=== PATIENT | male | born 1990 | race Caucasian/White ===

== ENCOUNTER 2016-09-10 15:02 | Observation (INO) | payer OTHER ==
--- NOTE | 2016-09-10 15:04 | PDOC ---
History of Present Illness - General History Source: Patient Exam Limitations: No Limitations - History of Present Illness Initial Comments: 09/10/16 15:11 The patient is a 25 year old male, with a significant past medical history of GERD who presents to the emergency department with nausea and vomiting about an hour ago.The patient reports having multiple episodes of vomiting and nausea. He also has chief complaints of abdominal pain, which he describes as a pressures sensation in his upper quadrant. He denies eating any new strange/ food. He reports just prior to vomiting, eating two donuts. He denies any recent fevers, chills, headache. He denies any recent diarrhea or constipation. He denies any recent chest pain or shortness of breath. He denies any recent dysuria, frequency, urgency or hematuria. Allergies: NKDA Past surgical history: denies Social History: Nonsmoker. Occasional EtOH use and denies drug use. <Martínez Carter - Last Filed: 09/10/16 17:19> - General History Source: Patient, Old Records Exam Limitations: No Limitations <Ani Shea - Last Filed: 09/10/16 19:13> - General Chief Complaint: Nausea/Vomiting Stated Complaint: VOMITING Time Seen by Provider: 09/10/16 15:04 Past History <Martínez Carter - Last Filed: 09/10/16 17:19> - Past Medical History GI Disorders: Yes (ESOPHAGEAL STRICTURE) - Psycho/Social/Smoking Cessation Hx Anxiety: No Suicidal Ideation: No Smoking History: Former smoker Have you smoked in the past 12 months: No Number of Cigarettes Smoked Daily: 0 'Breaking Loose' booklet given: 06/16/15 Hx Alcohol Use: Yes (OCCAS.) Drug/Substance Use Hx: No Substance Use Type: None <Ani Shea - Last Filed: 09/10/16 19:13> - Past Medical History Allergies/Adverse Reactions: Allergies Allergy/AdvReac Type Severity Reaction Status Date / Time mushroom Allergy Unknown Verified 09/10/16 15:06 shrimp Allergy Unknown Verified 09/10/16 15:06 Home Medications: Ambulatory Orders Esomeprazole Mag Trihydrate [Nexium] 20 mg PO DAILY 08/20/15 Review of Systems - Review of Systems Able to Perform ROS?: Yes Comments:: 09/10/16 15:11 CONSTITUTIONAL: Absent: fever, no chills, no fatigue EYES: Absent: visual changes ENT: Absent: ear pain, no sore throat CARDIOVASCULAR: Absent: chest pain, no palpitations RESPIRATORY: Absent: cough, no SOB GI: +Nausea, and vomiting, abdominal pain,. Absent: no constipation, no diarrhea GENITOURINARY: Absent: dysuria, no frequency, no hematuria MUSKULOSKELETAL: Absent: back pain, no arthralgia, no myalgia SKIN: Absent: rash NEURO: Absent: headache <Martínez Carter - Last Filed: 09/10/16 17:19> *Physical Exam - Physical Exam Comments: 09/10/16 15:11 GENERAL: Well developed, well nourished. Awake and alert. No acute distress. HEENT: Normocephalic, atraumatic. PERRLA, EOMI. No conjunctival pallor. Sclera are non- icteric. Moist mucous membranes. Oropharynx is clear. NECK: Supple. Full ROM. No JVD. Carotid pulses 2+ and symmetric, without bruits. No thyromegaly. No lymphadenopathy. CARDIOVASCULAR: Regular rate and rhythm. No murmurs, rubs, or gallops. Distal pulses are 2+ and symmetric. PULMONARY: +tachycardia. No evidence of respiratory distress. Lungs clear to auscultation bilaterally. No wheezing, rales or rhonchi. ABDOMINAL: Soft. Non-tender. Non-distended. No rebound or guarding. No organomegaly. Normoactive bowel sounds. MUSCULOSKELETAL Normal range of motion at all joints. No bony deformities or tenderness. No CVA tenderness. EXTREMITIES: No cyanosis. No clubbing. No edema. No calf tenderness. SKIN: Warm and dry. Normal capillary refill. No rashes. No jaundice. NEUROLOGICAL: Alert, awake, appropriate. Cranial nerves 2-12 intact. No deficits to light touch and temperature in face, upper extremities and lower extremities. No motor deficits in the in face, upper extremities and lower extremities. Normoreflexic in the upper and lower extremities. Normal speech. Toes are down- going bilaterally. Gait is normal without ataxia. PSYCHIATRIC: Cooperative. Good eye contact. Appropriate mood and affect. <Martínez Carter - Last Filed: 09/10/16 17:19> ED Treatment Course - LABORATORY CBC & Chemistry Diagram: 09/10/16 15:13 09/10/16 15:13 - RADIOLOGY Radiograph Interpretation: 09/10/16 17:19 CHEST X-RAY impressions reported by : No significant interval change or acute lung disease is present. ABDOMEN CT W/O CONTR impressions reported by : There is no CT evidence of appendicitis, diverticulitis or abscess formation. Mildly prominent mesenteric lymph nodes are seen within the abdomen bilaterally which may be on a chronic or acute basis. <Martínez Carter - Last Filed: 09/10/16 17:19> - LABORATORY CBC & Chemistry Diagram: 09/10/16 18:40 09/10/16 18:40 <Ani Shea - Last Filed: 09/10/16 19:13> Medical Decision Making - Medical Decision Making 09/10/16 15:12 25-year-old male with history of esophagitis and esophageal stricture who presents the emergency department with epigastric pain and vomiting this afternoon. Differential diagnosis includes but is not limited to: Food impaction , ACS, pancreatitis, peptic ulcer disease, gastritis, dehydration, electrolyte abnormality, toxic/metabolic derangement. Plan: 1. EKG 2. Labs 3. IV fluids for hydration 4. Urine analysis 6. Antiemetics 7. Pepcid 8. Observe and reevaluate <Ani Shea - Last Filed: 09/10/16 19:13> *DC/Admit/Observation/Transfer - Attestations Scribe Attestion: 09/10/16 15:11 Documentation prepared by Martínez Carter, acting as medical office supervisor for Ani Shea MD. <Martínez Carter - Last Filed: 09/10/16 17:19> - Discharge Dispostion Admit: Yes - Attestations Physician Attestion: 09/10/16 15:14 I, Dr. Ani Shea, attest that the scribes documentation that appears above has been prepared under my direction and personally reviewed by me in its entirety. I confirmed that the note above accurately reflects all work, treatment, procedures, and medical decision-making performed by me. <Ani Shea - Last Filed: 09/10/16 19:13> Diagnosis at time of Disposition: Nausea and vomiting, Epigastric pain - Discharge Dispostion Condition at time of disposition: Stable
[2016-09-10] MEDS ORDERED: SODIUM CHLORIDE 1,000 ML IV STA ×3 (15:11→17:25)
[2016-09-10] MEDS ORDERED: ONDANSETRON 4 MG/2 ML VIAL IVPUSH ONE (15:11)
[2016-09-10] MEDS ORDERED: ONDANSETRON 4 MG/2 ML VIAL ONE ×2 (15:18→15:19)
[2016-09-10 15:32] LABS: BASOPHIL 1.7 % (0-2.0); EOSINOPHIL 1.5 % (0-4.5); MCH 27.6 pg (25.7-33.7); MCHC 33.9 g/dl (32.0-35.9); MEAN CELL VOLUME 81.5 fl (80-96); MEAN PLT VOLUME 9.5 fl (7.5-11.1); NEUTROPHILS 69.6 % (42.8-82.8); PLATELET COUNT 368 K/MM3 (134-434); WHITE BLOOD COUNT 18.2 K/mm3 (4.0-10.0)
[2016-09-10 15:42] LABS: ALBUMIN 4.7 g/dl (3.5-5.0); ALK PHOS 77 U/L (32-92); ANION GAP 11 (8-16); BILIRUBIN,TOTAL 0.6 mg/dl (0.2-1.0); CALCIUM 9.7 mg/dl (8.4-10.2); CO2 25 mmol/L (22-28); CPK(DFH) 103 IU/L (38-174); CREATININE 0.9 mg/dl (0.6-1.3); GLUCOSE,RANDOM 195 mg/dl (74-106); MAGNESIUM 1.9 mg/dL (1.8-2.4); PHOSPHOROUS 2.9 mg/dl (2.5-4.6); SGOT/AST 20 U/L (10-42); SGPT/ALT 27 U/L (10-40); TOT PROT 8.2 g/dl (6.4-8.3)
[2016-09-10 15:52] LABS: TROPONIN I (DFP) < 0.03 ng/ml (0.03-0.50)
[2016-09-10 16:43] LABS: URINE BILIRUBIN 1+ (NEGATIVE); URINE BLOOD Negative (NEGATIVE); URINE GLUCOSE (UA) Negative (NEGATIVE); URINE KETONE 1+ (NEGATIVE); URINE LEUK ESTERASE Negative (NEGATIVE); URINE NITRITE Negative (NEGATIVE); URINE UROBILINOGEN 1.0 E.U/dl (0.2-1.0)
[2016-09-10 16:47] LABS: URINE APPEARANCE CLOUDY; URINE COLOR YELLOW; URINE PROTEIN 1+ (NEGATIVE)
[2016-09-10 17:06] LABS: CALCIUM OXALATE CRYSTALS FEW /hpf (NONE SEEN); URINE BACTERIA FEW /hpf (NEGATIVE); URINE RBC 0-2 /hpf (0-3)
[2016-09-10] MEDS ORDERED: KETOROLAC TROMETHAMINE 30 MG/1 ML VIAL IVPUSH ONE (17:23)
[2016-09-10] MEDS ORDERED: KETOROLAC TROMETHAMINE 30 MG/1 ML VIAL ONE (17:24)
[2016-09-10 17:54] LABS: URINE MARIJUANA THC POSITIVE ng/ml (CUTOFF=50)
[2016-09-10 18:58] LABS: MCH 27.3 pg (25.7-33.7); MCHC 33.7 g/dl (32.0-35.9); MEAN CELL VOLUME 81.1 fl (80-96); MEAN PLT VOLUME 9.1 fl (7.5-11.1); PLATELET COUNT 237 K/MM3 (134-434); RDW 11.8 % (11.9-15.9); WHITE BLOOD COUNT 20.2 K/mm3 (4.0-10.0)
[2016-09-10 19:07] LABS: CALCIUM 8.2 mg/dl (8.4-10.2); CREATININE 0.9 mg/dl (0.6-1.3)
[2016-09-10] MEDS ORDERED: ONDANSETRON 4 MG/2 ML VIAL IVPB PRN (20:05)
[2016-09-10] MEDS ORDERED: SODIUM CHLORIDE 1,000 ML IV SCH (20:15)
[2016-09-10 21:50] VITALS: BMI 28.8
[2016-09-10] MEDS: INSULIN SLIDING SCALE (NOVOLOG) 1 VIAL SQ SCH (22:00)
--- NOTE | 2016-09-10 23:59 | HP ---
CHIEF COMPLAINT: abdominal pain PCP: none HISTORY OF PRESENT ILLNESS: This is a 25 year old male with a past medical history of GERD and esophageal food bolus impaction who presented to the ED with abdominal pain. Pt states the pain was in his LUQ associated with vomiting. Pt states he vomited at least 12 times. States he is now feeling much better after receiving medications and IVF in the ED. No further pain. ER course was notable for: (1) given toradol 30 and ondansetron 4mg IVP (2) received 3L NS in ED (3) WBC 18.2, repeat 20.2 Recent Travel: pt denies PAST MEDICAL HISTORY: GERD esophageal food bolus impaction multiple episodes s/p EGD x 2 PAST SURGICAL HISTORY: pt denies Social History: Smoking: occ, approx once weekly Alcohol: occ, approx once weekly Drugs: occ, less than once weekly Family History: mother alive and well, no medical problems father alive and well, no medical problems 2 younger brothers alive and well, no medical problems Allergies mushroom Allergy (Unknown, Verified 09/10/16 15:06) shrimp Allergy (Unknown, Verified 09/10/16 15:06) HOME MEDICATIONS: 3 Medication Instructions Recorded Esomeprazole Mag Trihydrate 20 mg PO DAILY 08/20/15 [Nexium] REVIEW OF SYSTEMS CONSTITUTIONAL: Absent: fever, chills, diaphoresis, generalized weakness, malaise, loss of appetite, weight change HEENT: Absent: rhinorrhea, nasal congestion, throat pain, throat swelling, difficulty swallowing, mouth swelling, ear pain, eye pain, visual changes CARDIOVASCULAR: Absent: chest pain, syncope, palpitations, irregular heart rate, lightheadedness , peripheral edema RESPIRATORY: Absent: cough, shortness of breath, dyspnea with exertion, orthopnea, wheezing, stridor, hemoptysis GASTROINTESTINAL: Present: abdominal pain, nausea, vomiting Absent: abdominal distension, diarrhea, constipation, melena, hematochezia GENITOURINARY: Absent: dysuria, frequency, urgency, hesitancy, hematuria, flank pain, genital pain MUSCULOSKELETAL: Absent: myalgia, arthralgia, joint swelling, back pain, neck pain SKIN: Absent: rash, itching, pallor HEMATOLOGIC/IMMUNOLOGIC: Absent: easy bleeding, easy bruising, lymphadenopathy, frequent infections ENDOCRINE: Absent: unexplained weight gain, unexplained weight loss, heat intolerance, cold intolerance NEUROLOGIC: Absent: headache, focal weakness or paresthesias, dizziness, unsteady gait, seizure, mental status changes, bladder or bowel incontinence PSYCHIATRIC: Absent: anxiety, depression, suicidal or homicidal ideation, hallucinations. PHYSICAL EXAMINATION Vital Signs - 24 hr 3 09/10/16 09/10/16 09/10/16 15:03 15:21 15:22 Temperature 98.2 F Pulse Rate 101 H Pulse Rate [ 103 H Right] Respiratory 20 20 Rate Blood Pressure 149/76 120/80 Blood Pressure 120/80 [Left Arm] O2 Sat by Pulse 99 99 Oximetry (%) 3 09/10/16 09/10/16 09/10/16 16:17 20:16 21:26 Temperature 97.6 F 97.9 F 98.0 F Pulse Rate 77 Pulse Rate [ 75 Right] Respiratory 19 18 Rate Blood Pressure 112/65 Blood Pressure 104/71 [Left Arm] O2 Sat by Pulse 99 96 Oximetry (%) GENERAL: Awake, alert, and fully oriented, in no acute distress. HEAD: Normal with no signs of trauma. EYES: Pupils equal, round and reactive to light, extraocular movements intact, sclera anicteric, conjunctiva clear. No lid lag. EARS, NOSE, THROAT: Ears normal, nares patent, oropharynx clear without exudates. Moist mucous membranes. NECK: Normal range of motion, supple without lymphadenopathy, JVD, or masses. LUNGS: Breath sounds equal, clear to auscultation bilaterally. No wheezes, and no crackles. No accessory muscle use. HEART: Regular rate and rhythm, normal S1 and S2 without murmur, rub or gallop. ABDOMEN: Soft, nontender, not distended, normoactive bowel sounds, no guarding, no rebound, no masses. No hepatomegaly or splenomegaly. MUSCULOSKELETAL: Normal range of motion at all joints. No bony deformities or tenderness. No CVA tenderness. UPPER EXTREMITIES: 2+ pulses, warm, well-perfused. No cyanosis. No clubbing. Cap refill <2 seconds. No peripheral edema. LOWER EXTREMITIES: 2+ pulses, warm, well-perfused. No calf tenderness. No peripheral edema. NEUROLOGICAL: Cranial nerves II-XII intact. Normal speech. Normal gait. PSYCHIATRIC: Cooperative. Good eye contact. Appropriate mood and affect. SKIN: Warm, dry, normal turgor, no rashes or lesions noted. Laboratory Results - last 24 hr 3 09/10/16 09/10/16 09/10/16 15:13 15:13 15:13 WBC 18.2 H D RBC 5.69 H Hgb 15.7 Hct 46.4 MCV 81.5 MCHC 33.9 RDW 12.0 Plt Count 368 D MPV 9.5 Neutrophils % 69.6 Lymphocytes % 18.6 Monocytes % 8.6 Eosinophils % 1.5 Basophils % 1.7 Sodium 136 Potassium 3.9 Chloride 100 Carbon Dioxide 25 Anion Gap 11 BUN 14 Creatinine 0.9 Creat Clearance w eGFR > 60 POC Glucometer Random Glucose 195 H D Lactic Acid 2.074 H* Calcium 9.7 Phosphorus 2.9 Magnesium 1.9 Total Bilirubin 0.6 AST 20 ALT 27 Alkaline Phosphatase 77 Creatine Kinase 103 Troponin I < 0.03 L Total Protein 8.2 Albumin 4.7 Lipase 30 Urine Color Urine Appearance Urine pH Ur Specific Sachse Urine Protein Urine Glucose (UA) Urine Ketones Urine Blood Urine Nitrite Urine Bilirubin Urine Urobilinogen Ur Leukocyte Esterase Urine RBC Urine WBC Calcium Oxalate Crystal Urine Bacteria Opiates Screen Methadone Screen Barbiturate Screen Phencyclidine Screen Ur Amphetamines Screen MDMA (Ecstasy) Screen Benzodiazepines Screen Cocaine Screen U Marijuana (THC) Screen 3 Urine Color Yellow 09/10/16 16:29 Urine Appearance Cloudy 09/10/16 16:29 Urine pH 5.0 (4.5-8) 09/10/16 16:29 Ur Specific Sachse >= 1.030 (1.005-1.025) H 09/10/16 16:29 Urine Protein 1+ (NEGATIVE) H 09/10/16 16:29 Urine Glucose (UA) Negative (NEGATIVE) 09/10/16 16:29 Urine Ketones 1+ (NEGATIVE) H 09/10/16 16:29 Urine Blood Negative (NEGATIVE) 09/10/16 16:29 Urine Nitrite Negative (NEGATIVE) 09/10/16 16:29 Urine Bilirubin 1+ (NEGATIVE) H 09/10/16 16:29 Ur Leukocyte Esterase Negative (NEGATIVE) 09/10/16 16:29 Urine RBC 0-2 /hpf (0-3) 09/10/16 16:29 Urine WBC 2-3 (3-5) 09/10/16 16:29 Urine Bacteria Few /hpf (NEGATIVE) 09/10/16 16:29 3 03/07/2909/10/16 09/10/16 16:29 18:02 18:40 WBC 20.2 H RBC 4.80 Hgb 13.1 D Hct 38.9 D MCV 81.1 MCHC 33.7 RDW 11.8 L Plt Count 237 D MPV 9.1 Neutrophils % 88.0 H D Lymphocytes % 10.0 D Monocytes % 2.0 L Eosinophils % Basophils % Sodium Potassium Chloride Carbon Dioxide Anion Gap BUN Creatinine Creat Clearance w eGFR POC Glucometer Random Glucose Lactic Acid 1.171 Calcium Phosphorus Magnesium Total Bilirubin AST ALT Alkaline Phosphatase Creatine Kinase Troponin I Total Protein Albumin Lipase Urine Color Urine Appearance Urine pH Ur Specific Sachse Urine Protein Urine Glucose (UA) Urine Ketones Urine Blood Urine Nitrite Urine Bilirubin Urine Urobilinogen Ur Leukocyte Esterase Urine RBC Urine WBC Calcium Oxalate Crystal Urine Bacteria Opiates Screen Negative Methadone Screen Negative Barbiturate Screen Negative Phencyclidine Screen Negative Ur Amphetamines Screen Negative MDMA (Ecstasy) Screen Negative Benzodiazepines Screen Negative Cocaine Screen Negative U Marijuana (THC) Screen Positive 3 09/10/16 09/10/16 18:40 22:43 WBC RBC Hgb Hct MCV MCHC RDW Plt Count MPV Neutrophils % Lymphocytes % Monocytes % Eosinophils % Basophils % Sodium 139 Potassium 4.2 Chloride 105 Carbon Dioxide 27 Anion Gap 7 L BUN 13 Creatinine 0.9 Creat Clearance w eGFR POC Glucometer 95 Random Glucose 114 H D Lactic Acid Calcium 8.2 L Phosphorus Magnesium Total Bilirubin AST ALT Alkaline Phosphatase Creatine Kinase Troponin I Total Protein Albumin Lipase Urine Color Urine Appearance Urine pH Ur Specific Sachse Urine Protein Urine Glucose (UA) Urine Ketones Urine Blood Urine Nitrite Urine Bilirubin Urine Urobilinogen Ur Leukocyte Esterase Urine RBC Urine WBC Calcium Oxalate Crystal Urine Bacteria Opiates Screen Methadone Screen Barbiturate Screen Phencyclidine Screen Ur Amphetamines Screen MDMA (Ecstasy) Screen Benzodiazepines Screen Cocaine Screen U Marijuana (THC) Screen CHEST X-RAY impressions reported by : No significant interval change or acute lung disease is present. ABDOMEN CT W/O CONTR impressions reported by : There is no CT evidence of appendicitis, diverticulitis or abscess formation. Mildly prominent mesenteric lymph nodes are seen within the abdomen bilaterally which may be on a chronic or acute basis. ASSESSMENT/PLAN: 25yF with PMH GERD and esophageal food bolus impaction presented to the ED with abdominal pain. He is being admitted for observation. Abdominal pain/gastroenteritis - improved after IVF and meds - cont IVF overnight, trial clear liquids during the night, if tolerates, advance diet for breakfast leukocytosis - no fever, no chills - monitor off antibiotics, repeat in am GERD - home nexium changed to protonix DVT PPX - low risk, pt fully ambulatory and expected LOS <48h FEN - NS @ 125cc/hr - Repeat BMP in am - clear liquids Dispo: Pt requires inpatient observation for his emergent condition. Visit type - Emergency Visit Emergency Visit: Yes ED Registration Date: 09/10/16 Care time: The patient presented to the Emergency Department on the above date and was hospitalized for further evaluation of their emergent condition. - New Patient This patient is new to me today: Yes Date on this admission: 09/11/16 - Critical Care Critical Care patient: No
[2016-09-11] MEDS: INSULIN SLIDING SCALE (NOVOLOG) 1 VIAL SQ SCH ×2 (06:49→12:22)
[2016-09-11 08:23] LABS: BASOPHIL 0.3 % (0-2.0); EOSINOPHIL 1.2 % (0-4.5); MCH 27.3 pg (25.7-33.7); MCHC 32.7 g/dl (32.0-35.9); MEAN CELL VOLUME 83.4 fl (80-96); MEAN PLT VOLUME 9.9 fl (7.5-11.1); NEUTROPHILS 77.6 % (42.8-82.8); PLATELET COUNT 241 K/MM3 (134-434); RDW 11.9 % (11.9-15.9); WHITE BLOOD COUNT 13.4 K/mm3 (4.0-10.0)
[2016-09-11 08:45] LABS: CALCIUM 8.5 mg/dl (8.4-10.2); CREATININE 0.8 mg/dl (0.6-1.3); PHOSPHOROUS 2.8 mg/dl (2.5-4.6)
[2016-09-11 12:26] VITALS: BP 132/75; PULSE 76; TEMP 98
--- NOTE | 2016-09-11 18:10 | EKG ---
Test Reason : Blood Pressure : / mmHG Vent. Rate : 083 BPM Atrial Rate : 083 BPM P-R Int : 170 ms QRS Dur : 102 ms QT Int : 382 ms P-R-T Axes : 038 036 036 degrees QTc Int : 448 ms NORMAL SINUS RHYTHM NON-SPECIFIC INTRA-VENTRICULAR CONDUCTION DELAY NO PREVIOUS ECGS AVAILABLE Confirmed by MD KAREEN, RADHA ([id number]) on 09/11/2016 6:10:04 PM Referred By: Shmuel Mayers Confirmed By:RADHA MATHUR MD
== END 2016-09-11 12:51 | disposition home or self-care (01) ==
LOC: FER 15:02 → FM/S 20:34
PROVIDERS: ADMIT Internal Medicine; ATTEND Nurse Practitioner Family
DX: K52.89 Other specified noninfective gastroenteritis and colitis (principal); K21.9 Gastro-esophageal reflux disease without esophagitis
CPT/HCPCS: 36415; 71010-TC; 74176-TC; 80048; 80053; 80307; 81003; 81015; 82550; 83036; 83605; 83690; 83735; 84100; 84484; 85025; 87040; 93005; 99285-25; G0378